=== PATIENT | male | born 1990 | race Two or more races ===

== ENCOUNTER 2019-11-13 14:12 | Emergency (ER) | payer MEDICAID ==
[~2019-11-13] VITALS: Ht 177.8 cm; Wt 80.0 kg
[2019-11-13] MEDS ORDERED: SODIUM CHLORIDE 0.9% 1,000 ML IV ONE (15:10)
[2019-11-13] MEDS ORDERED: ONDANSETRON HCL 4MG/2ML INJ IV STA (15:10)
[2019-11-13 15:33] LABS: HEMOGLOBIN. 14.2 g/dL (14.0-18.0); MEAN CORPUSCULAR VOLUME 86.8 fL (80.0-94.0); MEAN PLATELET VOLUME 8.7 fl (7.4-10.4); PLATELET 283 x1000/uL (130-400); RED BLOOD CELL COUNT 4.72 mill/uL (4.7-6.1); RED CELL DISTRIBUTION WIDTH 13.5 % (11.6-14.6)
[2019-11-13 15:42] LABS: CHLORIDE 106 mEq/L (98-107)
[2019-11-13 15:44] LABS: ETHANOL BLOOD < 10 mg/dL
[2019-11-13 15:48] LABS: CREATINE KINASE 146 IU/L (39-308)
[2019-11-13 15:51] LABS: CREATINE KINASE MB FRACTION 1.1 ng/mL (0.5-3.6)
[2019-11-13 16:35] LABS: PLATELET ESTIMATE NORMAL
[2019-11-13 18:35] LABS: METHADONE URINE SCREEN NEGATIVE (NEGATIVE); OPIATES URINE SCREEN NEGATIVE (NEGATIVE)
[2019-11-13 18:36] LABS: *AMPHETAMINES SCREEN URINE NEGATIVE (NEGATIVE); *BARBITURATES SCREEN URINE NEGATIVE (NEGATIVE); *BENZODIAZEPINES SCREEN URINE NEGATIVE (NEGATIVE); *COCAINE SCREEN URINE NEGATIVE (NEGATIVE); CANNABINOID URINE SCREEN PRESUMTIVE POSITIVE (NEGATIVE); PHENCYCLIDINE URINE SCREEN NEGATIVE (NEGATIVE)
[2019-11-13 18:54] VITALS: BP 117/74
== END 2019-11-13 18:56 | disposition home or self-care (01) ==
LOC: ER 14:12
DX: E86.0 Dehydration (principal); G93.40 Encephalopathy, unspecified; F12.10 Cannabis abuse, uncomplicated
CPT/HCPCS: 36415; 70450; 71045; 80053; 80305; 80320; 82550; 82553; 83880; 84443; 84484; 85025; 87804; 93005; 96361; 96374; 99285; J2405; J7030; G0480

== ENCOUNTER 2020-05-11 13:44 | Emergency (ER) | payer MEDICAID, MEDICARE ==
[~2020-05-11] VITALS: Ht 182.9 cm; Wt 81.0 kg
[2020-05-11] MEDS ORDERED: HYDROCODONE/ACETAMINOPHEN 5/325MG TABLET PO STA (13:59)
[2020-05-11 15:29] VITALS: BP 128/70
== END 2020-05-11 15:31 | disposition home or self-care (01) ==
LOC: ER 13:44
DX: S20.212A Contusion of left front wall of thorax, initial encounter (principal); R07.89 Other chest pain; M25.512 Pain in left shoulder; Y04.2XXA Assault by strike against or bumped into by another person, initial encounter; Y93.89 Activity, other specified; Y92.89 Other specified places as the place of occurrence of the external cause; F12.90 Cannabis use, unspecified, uncomplicated
CPT/HCPCS: 71101; 99283